=== PATIENT | male | born 1995 | race Caucasian/White ===

== ENCOUNTER 2025-04-09 14:45 | Emergency (ER) | payer BC ==
[~2025-04-09] VITALS: Ht 172.7 cm; Wt 76.3 kg
[2025-04-09] MEDS: IBUPROFEN 600 MG TAB PO ONE (16:52)
[2025-04-09] MEDS: CEPHALEXIN 500 MG CAP PO ONE (16:52)
[2025-04-09] MEDS: LIDOCAINE W/EPINEPHrine 1% 20 ML VIAL SC ONE (17:25)
[2025-04-09] MEDS ORDERED: CEPH500C PO (18:19)
[2025-04-09 18:25] VITALS: BP 130/69; TEMP 98; O2SAT 95
== END 2025-04-09 18:43 | disposition home or self-care (01) ==
LOC: M ED 14:45
DX: S01.81XA Laceration without foreign body of other part of head, initial encounter (principal); S02.2XXA Fracture of nasal bones, initial encounter for closed fracture; J34.2 Deviated nasal septum; J34.89 Other specified disorders of nose and nasal sinuses; Z79.2 Long term (current) use of antibiotics; Y92.9 Unspecified place or not applicable; Y93.63 Activity, rugby; Y99.9 Unspecified external cause status